=== PATIENT | female | born 1985 | race Two or more races ===

== ENCOUNTER 2019-06-13 05:57 | Day surgery (SDC) | payer MEDICAID ==
[~2019-06-13 05:57] MED LIST: LACTATED RINGERS 1000 ML IV PRN; LIDOCAINE 0.5% INJ-PF (5 MG/ML) 50 ML SDV SUBCUT PRN
[2019-06-13] MEDS ORDERED: FENTANYL CITRATE INJ/PF 100 MCG/2 ML AMPUL ONE (06:25)
[2019-06-13] MEDS ORDERED: ONDANSETRON HCL INJ/PF 4 MG/2 ML SDV ONE (06:26)
[2019-06-13] MEDS ORDERED: MIDAZOLAM 2 MG/2 ML INJ ONE ×2 (06:26→07:14)
[2019-06-13] MEDS ORDERED: PROPOFOL INJ 200 MG/20 ML VIAL IV ONE (06:26)
[2019-06-13] MEDS ORDERED: LIDOCAINE 1%/EPINEPHRINE INJ 20 ML VIAL ONE (11:35)
[2019-06-13] MEDS ORDERED: KETAMINE HCL INJ 500 MG/10 ML VIAL ONE (12:12)
--- NOTE | 2019-06-13 12:37 | Operative Report ---
Nonrecallable Operative Report DATE OF SURGERY: 06/13/19 PREOPERATIVE DIAGNOSIS: Sebaceous cyst right jaw POSTOPERATIVE DIAGNOSIS: Patient cyst right jaw OPERATION: Excision of sebaceous cyst right jaw SURGEON: CARIN BARNES ANESTHESIA: Moderate Sedation TISSUE REMOVED OR ALTERED: Sebaceous cyst right jaw COMPLICATIONS: None ESTIMATED BLOOD LOSS: 2 cc INTRAOPERATIVE FINDINGS: See note PROCEDURE: Patient was brought to the operating room awake alert stable condition placed in the upper table supine position given IV sedation the right cheek and jaw were prepped and draped in usual sterile fashion. After appropriate timeout site verification the procedure commenced. Patient had a 1 cm diameter cystic lesion over the angle of her right jaw just below the mandible After anesthetizing the skin with 1% lidocaine with epinephrine an elliptical incision was made around the 1 cm cystic lesion. Dissection was carried out through subcutaneous tissue with the 15 blade we continue this dissection down to the superficial fat. The cyst was removed with its capsule. The hemostasis was obtained with digital pressure. The skin was then closed with intracuticular 4-0 Biosyn. Dermabond was placed on top of the wound. Estimated blood loss less than 2 cc. Patient was transferred recovery in stable condition
--- NOTE | 2019-06-13 12:40 | Discharge Summary ---
Discharge Summary (SDC) - Discharge Final Diagnosis: Sebaceous cyst right jaw Date of Surgery: 06/13/19 Condition: Good Forms: ASU Anesthesia D/C Instruction, Discharge POC-Surgical Service Prescriptions: Doxycycline Monohydrate 50 mg PO BID 10 Days #20 capsule Referrals: CARIN BARNES MD [ACTIVE STAFF] - Discharge Diet: As Tolerated Discharge Activity: Activity As Tolerated Report the Following to Your Physician Immediately: Unusual Bleeding
[2019-06-13] MEDS ORDERED: FENTANYL CITRATE INJ/PF 100 MCG/2 ML AMPUL IV PRN ×3 (12:55)
[2019-06-13] MEDS ORDERED: ONDANSETRON HCL INJ/PF 4 MG/2 ML SDV IV PRN (12:55)
[2019-06-13] MEDS ORDERED: DIPHENHYDRAMINE HCL 50 MG/ML VIAL IV PRN (12:55)
[2019-06-13] MEDS ORDERED: MEPERIDINE HCL/PF INJ 25 MG/1 ML DISP.SYRIN IV PRN (12:55)
[2019-06-13] MEDS ORDERED: PROMETHAZINE HCL INJ 25 MG/1 ML VIAL IV PRN ×2 (12:55)
[2019-06-13] MEDS ORDERED: OXYCODONE-ACETAMINOPHEN 5-325 MG TABLET ONE (13:26)
[2019-06-13] MEDS ORDERED: OXYCODONE-ACETAMINOPHEN 5-325 MG TABLET PO ONE (14:00)
[2019-06-13 14:35] VITALS: BP 108/74
== END 2019-06-13 14:10 | disposition home or self-care (01) ==
LOC: OROUT 05:57
PROVIDERS: ATTEND Surgery
DX: L72.3 Sebaceous cyst (principal); Z88.8 Allergy status to other drugs, medicaments and biological substances; G93.5 Compression of brain; M54.81 Occipital neuralgia; F17.210 Nicotine dependence, cigarettes, uncomplicated; Z79.899 Other long term (current) drug therapy
CPT/HCPCS: 81025; 11441; J2250; J3010; J3490 ×2; J2405; J2704